=== PATIENT | male | born 1990 | race Caucasian/White ===

== ENCOUNTER 2019-04-18 15:08 | Emergency (ER) | payer OTHER ==
[~2019-04-18] VITALS: Ht 172.7 cm; Wt 111.1 kg
[~2019-04-18 15:08] MED LIST: HYDROCODONE-AP1 EAC6 PO
[2019-04-18] MEDS ORDERED: NORCO 5-325 TA1 EAC1 PO (15:22)
[2019-04-18] MEDS ORDERED: FLEXERIL PO (15:22)
[2019-04-18 15:23] VITALS: BP 146/84
== END 2019-04-18 15:26 | disposition home or self-care (01) ==
LOC: M.ERS 15:08
DX: S46.811A Strain of other muscles, fascia and tendons at shoulder and upper arm level, right arm, initial encounter (principal); Z88.2 Allergy status to sulfonamides; Z88.1 Allergy status to other antibiotic agents; Z88.6 Allergy status to analgesic agent; X50.9XXA Other and unspecified overexertion or strenuous movements or postures, initial encounter; Y93.89 Activity, other specified; Y92.89 Other specified places as the place of occurrence of the external cause; Y99.8 Other external cause status

== ENCOUNTER 2019-05-14 01:14 | Emergency (ER) | payer OTHER ==
[~2019-05-14] VITALS: Ht 175.3 cm; Wt 102.1 kg
[~2019-05-14 01:14] MED LIST changes: +FLEXERIL PO; +NORCO 5-325 TA1 EAC1 PO
[2019-05-14] MEDS ORDERED: ZPAK PO (01:24)
[2019-05-14] MEDS ORDERED: PREDNISONE 20 M20 M1 PO (01:24)
[2019-05-14 01:27] VITALS: BP 166/89
== END 2019-05-14 01:27 | disposition home or self-care (01) ==
LOC: M.ERS 01:14
DX: J40 Bronchitis, not specified as acute or chronic (principal); Z88.1 Allergy status to other antibiotic agents; Z88.2 Allergy status to sulfonamides; Z88.6 Allergy status to analgesic agent

== ENCOUNTER 2020-12-21 18:20 | Emergency (ER) | payer OTHER ==
[~2020-12-21] VITALS: Ht 172.7 cm; Wt 101.2 kg
[~2020-12-21 18:20] MED LIST changes: +PREDNISONE 20 M20 M1 PO; +ZPAK PO
[2020-12-21 19:35] LABS: INFLUENZA A ANTIGEN Negative (Negative); INFLUENZA B ANTIGEN Negative (Negative)
[2020-12-21] MEDS ORDERED: TESSALON PERLE100 MG PO (20:35)
[2020-12-21] MEDS ORDERED: VENTOLIN HFA 1818 GM INH (20:35)
[2020-12-21] MEDS ORDERED: MEDROLDOSEPACK PO (20:35)
[2020-12-21 20:42] VITALS: BP 141/70
== END 2020-12-21 20:43 | disposition home or self-care (01) ==
LOC: M.ERS 18:20
PROVIDERS: Nurse Practitioner Family
DX: J20.9 Acute bronchitis, unspecified (principal); J45.909 Unspecified asthma, uncomplicated; Z20.822 Contact with and (suspected) exposure to COVID-19; Z88.2 Allergy status to sulfonamides; Z88.6 Allergy status to analgesic agent

== ENCOUNTER 2021-04-25 14:29 | Emergency (ER) | payer OTHER ==
[~2021-04-25] VITALS: Ht 172.7 cm; Wt 91.2 kg
[~2021-04-25 14:29] MED LIST changes: +MEDROLDOSEPACK PO; +TESSALON PERLE100 MG PO; +VENTOLIN HFA 1818 GM INH
[2021-04-25 14:35] VITALS: BP 143/85
[2021-04-25] MEDS ORDERED: FLEXERIL PO (14:46)
[2021-04-25] MEDS ORDERED: PREDNISONE50 MG PO (14:46)
== END 2021-04-25 15:07 | disposition home or self-care (01) ==
LOC: M.ERS 14:29
DX: M54.41 Lumbago with sciatica, right side (principal); J45.909 Unspecified asthma, uncomplicated; Z96.22 Myringotomy tube(s) status; Z88.2 Allergy status to sulfonamides; Z88.8 Allergy status to other drugs, medicaments and biological substances

== ENCOUNTER 2021-08-30 15:43 | Emergency (ER) | payer OTHER ==
[~2021-08-30] VITALS: Ht 175.3 cm; Wt 89.8 kg
[~2021-08-30 15:43] MED LIST changes: +PREDNISONE50 MG PO
[2021-08-30 21:06] VITALS: BP 147/87
== END 2021-08-30 21:06 | disposition home or self-care (01) ==
LOC: M.ERS 15:43
DX: R05.9 Cough, unspecified (principal); Z20.822 Contact with and (suspected) exposure to COVID-19; R50.9 Fever, unspecified; R53.83 Other fatigue; R09.3 Abnormal sputum; Z53.21 Procedure and treatment not carried out due to patient leaving prior to being seen by health care provider